=== PATIENT | male | born 1960 | race Caucasian/White ===

== ENCOUNTER 2018-07-31 18:19 | Emergency (ER) | payer OTHER ==
--- NOTE | 2018-07-31 20:20 | ER Document Report ---
ED ENT - General Chief Complaint: Nose Bleed Stated Complaint: NOSE BLEED Time Seen by Provider: 07/31/18 20:08 Notes: Patient is a 57-year-old male who presents emergency department with a chief complaint of epistaxis. He states 3 days ago he went to urgent care and they said that he could have the area cauterized. He was sent home with saline spray and Afrin for his symptoms. Today he had a gush of blood that started, and lasted about an hour. He does take aspirin at home. He has a history of hypertension. TRAVEL OUTSIDE OF THE [place] IN LAST 30 DAYS: No - Related Data Allergies/Adverse Reactions: bacitracin [From Neosporin Plus PainRelief(chantell)] Allergy (Verified 07/31/18 18:22) neomycin [From Neosporin Plus PainRelief(chantell)] Allergy (Verified 07/31/18 18:22) polymyxin B [From Neosporin Plus PainRelief(chantell)] Allergy (Verified 07/31/18 18:22) pramoxine [From Neosporin Plus PainRelief(chantell)] Allergy (Verified 07/31/18 18:22) Past Medical History - Social History Smoking Status: Never Smoker Chew tobacco use (# tins/day): No Frequency of alcohol use: None Drug Abuse: None Family History: Reviewed & Not Pertinent Patient has suicidal ideation: No Patient has homicidal ideation: No Renal/ Medical History: Denies: Hx Peritoneal Dialysis Review of Systems - Review of Systems Notes: REVIEW OF SYSTEMS: CONSTITUTIONAL : Denies recent illness. Denies recent unintentional weight loss. Denies fever, chills, or sweats. EENT: See HPI CARDIOVASCULAR: Denies chest pain. RESPIRATORY: Denies shortness of breath, cough, congestion, difficulty breathing, or wheezing. GASTROINTESTINAL: Denies nausea, vomiting, and diarrhea. Denies abdominal pain. Denies constipation. GENITOURINARY: Denies difficulty urinating, burning, blood in urine, urgency or frequency. MUSCULOSKELETAL: Denies neck and back pain. Denies joint pain or swelling. SKIN: Denies rash, itchiness, or lesions HEMATOLOGIC : Denies easy bruising or bleeding. LYMPHATIC: Denies swollen, painful, enlarged glands. NEUROLOGICAL: Denies no numbness or tingling denies weakness. Denies headache. Denies altered mental status. Denies alteration in speech. PSYCHIATRIC: Denies stress, anxiety, alteration in sleep patterns, or depression. All other systems reviewed and negative. Physical Exam - Vital signs Vitals: Temp Pulse Resp BP Pulse Ox 97.6 F 85 14 150/92 H 97 07/31/18 18:22 07/31/18 18:22 07/31/18 18:22 07/31/18 18:22 07/31/18 18:22 - Notes Notes: PHYSICAL EXAMINATION: GENERAL: Appears well, healthy, well-nourished, no acute distress. HEAD: Normocephalic, atraumatic. EYES: PERRL, conjunctiva normal, all extraocular movements intact, sclera nonicteric ENT: Moist mucous membranes. Dry blood noted to left nare. NECK: Supple, no noticeable swelling, redness, rash. Normal range of motion. LUNGS: Equal breath sounds bilaterally and clear to auscultation. No wheezes rales or rhonchi. CARDIOVASCULAR: S1-S2, regular rate, regular rhythm. Radial pulses 2+, normal. ABDOMEN: Normoactive bowel sounds. Soft, nontender, no guarding, no rebound tenderness, and no masses palpated. EXTREMITIES: Normal strength and range of motion, no pitting or edema. No cyanosis. NEUROLOGICAL: Moves all extremities upon command. Strength 5/5 in all extremities. PSYCH: Normal mood, normal affect. SKIN: Warm, dry. No rash, lesions, ulcerations noted. Normal skin turgor. Course - Re-evaluation Re-evalutation: 07/31/18 20:18 At the time my assessment the patient's bleeding had stopped. I could not visualize a definitive area of where he was bleeding. He had been holding pressure for about an hour. A CBC will be drawn to rule out anemia. If his nose bleeds again, I will cauterize the area. 07/31/18 21:50 Patient's labs are unremarkable at this time. I have discussed this case with Dr. Lu. He agrees that the patient needs to follow-up with ENT in regards to his frequent nosebleeds. Since he has not actively bleeding at this time, he will be sent home with his current regimen of Afrin and saline. - Vital Signs Vital signs: Temp Pulse Resp BP Pulse Ox 97.7 F 76 14 142/64 H 98 07/31/18 21:59 07/31/18 21:59 07/31/18 21:59 07/31/18 21:59 07/31/18 21:59 - Laboratory Result Diagrams: 07/31/18 20:42 Laboratory results interpreted by me: 07/31/18 20:42 WBC 12.5 H Discharge - Discharge Clinical Impression: Epistaxis Condition: Stable Disposition: HOME, SELF-CARE Additional Instructions: You were seen today in the emergency department for nosebleed. Your labs are normal at this time. Please continue the Afrin and saline regimen you are currently on. Please follow-up with the ear, nose, and throat doctor tomorrow morning. Please stop taking your aspirin at this time, and follow-up with your primary care doctor in 3-5 days. If you develop worsening bleeding, and are unable to stop the bleeding yourself, please return to the emergency department. Referrals: OUMAR SMITH DO [ASSOCIATE] - Follow up tomorrow
[2018-07-31 21:14] LABS: ABSOLUTE BASOPHILS # (AUTO) 0.1 10^3/uL (0.0-0.2); ABSOLUTE EOSINOPHILS # (AUTO) 0.3 10^3/uL (0.0-0.6); ABSOLUTE LYMPHOCYTES (AUTO) 3.5 10^3/uL (0.5-4.7); ABSOLUTE MONOCYTES (AUTO) 0.9 10^3/uL (0.1-1.4); ABSOLUTE NEUT (AUTO) 7.8 10^3/uL (1.7-8.2); BASOPHILS % (AUTO) 0.6 % (0-2); HEMATOCRIT 47.3 % (37.9-51.0); HEMOGLOBIN 16.5 g/dL (13.5-17.0); LYMPHOCYTES % (AUTO) 28.1 % (13-45); MEAN CORPUSCULAR HEMOGLOBIN 30.2 pg (27.0-33.4); MEAN CORPUSCULAR HGB CONC 34.9 g/dL (32.0-36.0); MEAN CORPUSCULAR VOLUME 87 fl (80-97); MONOCYTES % (AUTO) 7.3 % (3-13); RED BLOOD COUNT 5.46 10^6/uL (4.35-5.55); RED CELL DISTRIBUTION WIDTH 13.2 % (11.5-14.0); TOTAL CELLS COUNTED % (AUTO) 100 %; WHITE BLOOD COUNT 12.5 10^3/uL (4.0-10.5)
[2018-07-31 21:35] LABS: PLATELET COUNT 254 10^3/uL (150-450)
[2018-07-31 22:00] VITALS: BP 142/64
[2018-07-31 22:13] LABS: ABSOLUTE LYMPHOCYTES# (MANUAL) 3.5 10^3/uL (0.5-4.7); ABSOLUTE MONOCYTES # (MANUAL) 0.8 10^3/uL (0.1-1.4); ABSOLUTE NEUTROPHILS# (MANUAL) 8.1 10^3/uL (1.7-8.2); BASOPHILS % (MANUAL) 0 % (0-2); EOSINOPHILS % (MANUAL) 1 % (0-6); LYMPHOCYTES % (MANUAL) 28 % (13-45); MONOCYTES % (MANUAL) 6 % (3-13); SEGMENTED NEUTROPHILS % (MAN) 65 % (42-78); TOTAL CELLS COUNTED 100
[2018-07-31 22:14] LABS: PLATELET COMMENT ADEQUATE; POIKILOCYTOSIS SLIGHT; POLYCHROMASIA SLIGHT; TEAR DROP CELLS SLIGHT
== END 2018-07-31 22:00 | disposition home or self-care (01) ==
LOC: ER 18:19
DX: R04.0 Epistaxis (principal); Z79.82 Long term (current) use of aspirin; I10 Essential (primary) hypertension; Z88.3 Allergy status to other anti-infective agents
CPT/HCPCS: 36415; 85025; 99283

== ENCOUNTER 2018-08-01 04:14 | Emergency (ER) | payer OTHER ==
[2018-08-01] MEDS ORDERED: BUPIVACAINE HCL 0.5 % INJ/PF 30 ML SDV INJ ONE (04:26)
[2018-08-01] MEDS ORDERED: LIDOCAINE 2%/EPINEPHRINE INJ 20 ML VIAL INJ ONE (04:28)
--- NOTE | 2018-08-01 05:28 | ER Document Report ---
ED General - General Chief Complaint: Nose Bleed Stated Complaint: NOSE BLEED Time Seen by Provider: 08/01/18 04:22 Notes: Patient is a 57-year-old male presents with complaint of a nosebleed. Patient was seen earlier today and at that time he was not bleeding by the time he got here and therefore is discharged home with ENT follow-up. He says since going home he is now bled for about 3 hours and therefore is come back to the ER. Bleeding is coming mostly from the left nare. Some bleeding down the back of his throat. The only blood thinner he takes is aspirin. Denies any trauma to his nose. Patient said this is a fourth nosebleed in the last 2-3 days. She had a CBC performed earlier today at his previous visit which showed normal hemoglobin and normal platelets. TRAVEL OUTSIDE OF THE [place] IN LAST 30 DAYS: No - Related Data Allergies/Adverse Reactions: bacitracin [From Neosporin Plus PainRelief(chantell)] Allergy (Verified 07/31/18 18:22) neomycin [From Neosporin Plus PainRelief(chantell)] Allergy (Verified 07/31/18 18:22) polymyxin B [From Neosporin Plus PainRelief(chantell)] Allergy (Verified 07/31/18 18:22) pramoxine [From Neosporin Plus PainRelief(chantell)] Allergy (Verified 07/31/18 18:22) Past Medical History - Social History Smoking Status: Never Smoker Frequency of alcohol use: None Drug Abuse: None Family History: Reviewed & Not Pertinent Patient has suicidal ideation: No Patient has homicidal ideation: No - Past Medical History Cardiac Medical History: Reports: Hx Hypertension Endocrine Medical History: Reports: Hx Diabetes Mellitus Type 2 Renal/ Medical History: Denies: Hx Peritoneal Dialysis Past Surgical History: Reports: Hx Orthopedic Surgery - neck fusion Review of Systems - Review of Systems Notes: My Normal Review Basic REVIEW OF SYSTEMS: CONSTITUTIONAL : Denies fever, chills, or sweats. Denies recent illness. EENT: Nosebleed RESPIRATORY: Denies cough, cold, or chest congestion. Denies shortness of breath, difficulty breathing, or wheezing. MUSCULOSKELETAL: Denies neck or back pain or joint pain or swelling. SKIN: Denies rash or skin lesions. NEUROLOGICAL: Denies altered mental status or loss of consciousness. Denies headache. ALL OTHER SYSTEMS REVIEWED AND NEGATIVE. Physical Exam - Vital signs Vitals: Pulse Resp BP Pulse Ox 93 20 151/97 H 96 08/01/18 04:22 08/01/18 04:22 08/01/18 04:22 08/01/18 04:22 - Notes Notes: General Appearance: Well nourished, alert, cooperative, no acute distress, no obvious discomfort. Vitals: reviewed, See vital signs table. Head: no swelling or tenderness to the head Eyes: PERRL, EOMI, Conjuctiva clear Mouth: No decreasd moisture Nares: Constant flow of blood through left nare. No blood coming from right nare. Patient is coughing up some blood as well. Throat: No tonsillar inflammation, No airway obstruction, No lymphadenopathy. Some blood in back of throat. Neck: Supple, no neck tenderness, No neck swelling Skin: warm, dry, appropriate color, no rash Neuro: speech clear, oriented x 3, normal affect, responds appropriately to questions. Course - Re-evaluation Re-evalutation: 08/01/18 05:41 30 minutes ago I removed a cotton ball that was soaked with lidocaine with epi. When I looked inside the nares I do not see the source of bleeding in the anterior part of the nare. Suspect is further back in the left nasopharynx region. I therefore placed a packing. Bleeding seems to be much improved. Will monitor the patient feel a bit longer with the packing in place to make sure he does not have recurrent bleeding. 08/01/18 06:37 Patient has not had any further bleeding from the nose since packing is in place. Does have some headache which is understandable with the packing. I will place him on Keflex. We will place him on some pain medication. I informed that they should follow-up with the nose and throat doctor on Monday. If unable to follow-up with them by Monday then they should return to the ER for packing removal. Encouraged him to return to ER if he has any fevers or recurrent bleeding. Patient agrees with plan will be discharged home. Dictation of this chart was performed using voice recognition software; therefore, there may be some unintended grammatical errors. - Vital Signs Vital signs: Temp Pulse Resp BP Pulse Ox 97.9 F 80 18 151/83 H 97 08/01/18 06:02 08/01/18 06:02 08/01/18 06:02 08/01/18 06:02 08/01/18 06:02 Discharge - Discharge Clinical Impression: Epistaxis Condition: Good Disposition: HOME, SELF-CARE Additional Instructions: We have placed a packing in your left nose. This must be removed in 24 [address] Smith, ENT physician, to follow up or Monday for reevaluation and removal of packing. Please return to the ER on Monday for packing removal if Dr. Smith is unable to see you before the weekend. Please return to the ER immediately if you have fevers, recurrent bleeding, or feel unwell. Please be aware that [place] does have Tylenol (acetaminophen) in it. Please make sure you do not take more than 4000 mg of acetaminophen a day. Do not drive or care for children after you have taken this medication they will make you sleepy and sometimes impair judgment. Prescriptions: Cephalexin Monohydrate [Keflex 500 mg Capsule] 500 mg PO BID 5 Days #10 capsule Forms: Return to Work Referrals: OUMAR SMITH DO [ASSOCIATE] - 08/02/18
[2018-08-01 06:04] VITALS: BP 151/83
[2018-08-01] MEDS ORDERED: HYDROCODONE/ACETAMINOPHEN 5-325 MG TABLET PO ONE (06:27)
[2018-08-01] MEDS ORDERED: HYDROCODONE/ACETAMINOPHEN 5-325 MG (6 TAB/ER DISP) PO PRN (06:27)
[2018-08-01] MEDS ORDERED: CEPHALEXIN 500 MG CAPSULE PO ONE (06:27)
== END 2018-08-01 06:46 | disposition home or self-care (01) ==
LOC: ER 04:14
PROC: 2Y41X5Z Packing of Nasal Region using Packing Material (ICD-10-PCS; principal; 2018-08-01)
DX: R04.0 Epistaxis (principal); Z79.82 Long term (current) use of aspirin; I10 Essential (primary) hypertension; E11.9 Type 2 diabetes mellitus without complications
CPT/HCPCS: 99283; 30901; J3490 ×2

== ENCOUNTER 2018-08-01 17:43 | Emergency (ER) | payer OTHER ==
[2018-08-01] MEDS ORDERED: LIDOCAINE 2% VISCOUS SOLN 20 ML UDCUP PO ONE (18:08)
[2018-08-01] MEDS ORDERED: THROMBIN (BOVINE) 5000 UNIT EPITAXIS KIT TP ONE (18:08)
--- NOTE | 2018-08-01 18:11 | ER Document Report ---
ED Medical Screen (RME) - General Chief Complaint: Nose Bleed Stated Complaint: NOSE BLEED Time Seen by Provider: 08/01/18 18:07 Mode of Arrival: Ambulatory Information source: Patient Notes: 57-year-old male returns fo the third time in 2 days with a nosebleed. Not on any blood thinning medications. Denies trauma. Patient had nasal packing placed this morning but now has bleeding around the packing. I have greeted and performed a rapid initial assessment of this patient. A comprehensive ED assessment and evaluation of the patient, analysis of test results and completion of medical decision making process we will be contacted by additional ED providers. PHYSICAL EXAMINATION: Vital signs reviewed-hypertensive GENERAL: Well-appearing, well-nourished and in no acute distress. LUNGS: No respiratory distress Musculoskeletal: Normal range of motion NEUROLOGICAL: Normal speech, normal gait. PSYCH: Normal mood, normal affect. SKIN: Warm, Dry, normal turgor, no rashes or lesions noted. TRAVEL OUTSIDE OF THE [place] IN LAST 30 DAYS: No - HPI Onset: Other Onset/Duration: Persistent Quality of pain: No pain Severity: Moderate - Related Data Allergies/Adverse Reactions: bacitracin [From Neosporin Plus PainRelief(chantell)] Allergy (Verified 08/01/18 17:45) neomycin [From Neosporin Plus PainRelief(chantell)] Allergy (Verified 08/01/18 17:45) polymyxin B [From Neosporin Plus PainRelief(chantell)] Allergy (Verified 08/01/18 17:45) pramoxine [From Neosporin Plus PainRelief(chantell)] Allergy (Verified 08/01/18 17:45) Past Medical History - Past Medical History Cardiac Medical History: Reports: Hx Hypertension Endocrine Medical History: Reports: Hx Diabetes Mellitus Type 2 Renal/ Medical History: Denies: Hx Peritoneal Dialysis Past Surgical History: Reports: Hx Orthopedic Surgery - neck fusion Physical Exam - Vital signs Vitals: Temp Pulse Resp BP Pulse Ox 97.8 F 97 18 151/95 H 96 08/01/18 17:49 08/01/18 17:49 08/01/18 17:49 08/01/18 17:49 08/01/18 17:49 Course - Vital Signs Vital signs: Temp Pulse Resp BP Pulse Ox 97.8 F 97 18 151/95 H 96 08/01/18 17:49 08/01/18 17:49 08/01/18 17:49 08/01/18 17:49 08/01/18 17:49
[2018-08-01] MEDS ORDERED: OXYMETAZOLINE HCL 0.05% NASAL SPRAY 15 ML BOTTLE NASL ONE (18:17)
[2018-08-01] MEDS ORDERED: TRANEXAMIC ACID INJ/PF 1,000 MG/10 ML SDV IV ONE (18:50)
--- NOTE | 2018-08-01 19:04 | ER Document Report ---
ED ENT - General Chief Complaint: Nose Bleed Stated Complaint: NOSE BLEED Time Seen by Provider: 08/01/18 18:07 Mode of Arrival: Ambulatory Information source: Patient TRAVEL OUTSIDE OF THE [place] IN LAST 30 DAYS: No - HPI Patient complains to provider of: Nose problem Onset: Other - 2 days Onset/Duration: Intermittent, Persistent Quality of pain: Achy Severity: Moderate Location of pain: Nose Associated symptoms: Nose bleed Similar symptoms previously: Yes Recently seen / treated by doctor: Yes Notes: Patient is a 57-year-old male presenting to the emergency room for the third time in the last 2 days complaining of nosebleed, he reports that it is very dry in his house and he has had an upper respiratory illness over the past few days which is likely what led to his nosebleed, he was seen in the emergency room here twice previously and on the second occasion had a Rhino Rocket placed in the left nare, however he developed bleeding around the packing earlier today prompting him to come back to the emergency department, he is coughing up a small amount of blood-tinged sputum as well, denies any fevers, takes baby as pirin on a daily basis but no other blood thinners, denies any nasal trauma - Related Data Allergies/Adverse Reactions: bacitracin [From Neosporin Plus PainRelief(chantell)] Allergy (Verified 08/01/18 17:45) neomycin [From Neosporin Plus PainRelief(chantell)] Allergy (Verified 08/01/18 17:45) polymyxin B [From Neosporin Plus PainRelief(chantell)] Allergy (Verified 08/01/18 17:45) pramoxine [From Neosporin Plus PainRelief(chantell)] Allergy (Verified 08/01/18 17:45) Past Medical History - General Information source: Patient - Social History Smoking Status: Unknown if Ever Smoked Family History: Reviewed & Not Pertinent - Past Medical History Cardiac Medical History: Reports: Hx Hypertension Endocrine Medical History: Reports: Hx Diabetes Mellitus Type 2 Renal/ Medical History: Denies: Hx Peritoneal Dialysis Past Surgical History: Reports: Hx Orthopedic Surgery - neck fusion Review of Systems - Review of Systems Constitutional: No symptoms reported EENT: See HPI Cardiovascular: No symptoms reported Respiratory: No symptoms reported Gastrointestinal: No symptoms reported Genitourinary: No symptoms reported Male Genitourinary: No symptoms reported Musculoskeletal: No symptoms reported Skin: No symptoms reported Hematologic/Lymphatic: No symptoms reported Neurological/Psychological: No symptoms reported -: Yes All other systems reviewed and negative Physical Exam - Vital signs Vitals: Temp Pulse Resp BP Pulse Ox 97.8 F 97 18 151/95 H 96 08/01/18 17:49 08/01/18 17:49 08/01/18 17:49 08/01/18 17:49 08/01/18 17:49 Interpretation: Normal - General General appearance: Appears well, Alert - HEENT Head: Normocephalic, Atraumatic Eyes: Normal Conjunctiva: Normal Extraocular movements intact: Yes Eyelashes: Normal Pupils: PERRL Nasal: Bloody discharge - Left side Pharynx: Normal Neck: Normal - Respiratory Respiratory status: No respiratory distress Chest status: Nontender Breath sounds: Normal Chest palpation: Normal - Cardiovascular Rhythm: Regular Heart sounds: Normal auscultation Murmur: No - Abdominal Inspection: Normal Distension: No distension Bowel sounds: Normal Tenderness: Nontender Organomegaly: No organomegaly - Back Back: Normal, Nontender - Extremities General upper extremity: Normal inspection, Nontender, Normal color, Normal ROM, Normal temperature General lower extremity: Normal inspection, Nontender, Normal color, Normal ROM, Normal temperature, Normal weight bearing. No: Milo's sign - Neurological Neuro grossly intact: Yes Cognition: Normal Orientation: AAOx4 Cyclone Coma Scale Eye Opening: Spontaneous Cyclone Coma Scale Verbal: Oriented Denilson Coma Scale Motor: Obeys Commands Denilson Coma Scale Total: 15 Speech: Normal Motor strength normal: LUE, RUE, LLE, RLE Sensory: Normal - Psychological Associated symptoms: Normal affect, Normal mood - Skin Skin Temperature: Warm Skin Moisture: Dry Skin Color: Normal Course - Re-evaluation Re-evalutation: 08/01/18 23:08 On initial evaluation I removed the Merocel packing that was placed in the triage area, I did attempt to use an atomizer to administer thrombin, however this made patient gag repeatedly causing him to have worsening bleeding from his left nare, I then took a Merocel sponge and soaked it in TXA, and placed in the left nare, I observed him for nearly an hour at that time he continued to have a small amount of oozing from the left nare, I then removed that Marocel dressing, placed another one in the left nare and soaks at that in TXA as well, observe patient for another 40 minutes, he did not appear to have any worsening bleeding at this time and there was no blood oozing from the sponge, therefore patient was discharged with instructions to follow-up with ENT on Monday as scheduled, return if symptoms worsen, patient and acknowledge understanding and agreement with this plan - Vital Signs Vital signs: Temp Pulse Resp BP Pulse Ox 97.8 F 98 20 172/98 H 99 08/01/18 17:49 08/01/18 20:26 08/01/18 20:26 08/01/18 20:26 08/01/18 20:26 Discharge - Discharge Clinical Impression: Epistaxis Condition: Stable Disposition: HOME, SELF-CARE Instructions: Nosebleed Instructions ([facility]) Additional Instructions: Follow-up with ENT as scheduled. Return to the emergency room immediately if symptoms worsen or any additional concerns.
[2018-08-01 20:27] VITALS: BP 172/98
== END 2018-08-01 20:40 | disposition home or self-care (01) ==
LOC: ER 17:43
PROC: 2Y41X5Z Packing of Nasal Region using Packing Material (ICD-10-PCS; principal; 2018-08-01)
DX: R04.0 Epistaxis (principal); I10 Essential (primary) hypertension; E11.9 Type 2 diabetes mellitus without complications; Z79.82 Long term (current) use of aspirin
CPT/HCPCS: 30901; 93005; 99283; 99285; 36415; 85025; 93010; J3490 ×6

== ENCOUNTER 2018-08-01 21:28 | Emergency (ER) | payer OTHER ==
[2018-08-01 23:13] LABS: ABSOLUTE BASOPHILS # (AUTO) 0.1 10^3/uL (0.0-0.2); ABSOLUTE LYMPHOCYTES (AUTO) 1.7 10^3/uL (0.5-4.7); ABSOLUTE MONOCYTES (AUTO) 1.1 10^3/uL (0.1-1.4); ABSOLUTE NEUT (AUTO) 14.3 10^3/uL (1.7-8.2); BASOPHILS % (AUTO) 0.3 % (0-2); EOSINOPHILS % (AUTO) 0.1 % (0-6); HEMATOCRIT 45.4 % (37.9-51.0); LYMPHOCYTES % (AUTO) 10.1 % (13-45); MEAN CORPUSCULAR HEMOGLOBIN 30.5 pg (27.0-33.4); MEAN CORPUSCULAR HGB CONC 35.3 g/dL (32.0-36.0); MEAN CORPUSCULAR VOLUME 86 fl (80-97); MONOCYTES % (AUTO) 6.3 % (3-13); PLATELET COUNT 255 10^3/uL (150-450); RED BLOOD COUNT 5.26 10^6/uL (4.35-5.55); SEGMENTED NEUTROPHILS % (AUTO) 83.2 % (42-78); TOTAL CELLS COUNTED % (AUTO) 100 %; WHITE BLOOD COUNT 17.2 10^3/uL (4.0-10.5)
--- NOTE | 2018-08-01 23:15 | ER Document Report ---
ED General - General Chief Complaint: Fainting Stated Complaint: PASSED OUT Time Seen by Provider: 08/01/18 22:34 Notes: Patient is a 57-year-old male who presents to the emergency department with a chief complaint of passing out. He was seen times already in the emergency department for complaints of epistaxis. The first visit he was seen and there was no active bleeding noted, therefore he was sent home. During the second visit he had nasal packing placed and the bleeding was controlled and he was sent home. On his third visit packing was placed again, with TXA. His was driving him home on his third visit and he had slumped over in the car. His witnessed the event and denies him hitting his head. He was referred out to ENT here in [place], but the next appointment is not until Monday. He does take aspirin. TRAVEL OUTSIDE OF THE [place] IN LAST 30 DAYS: No - Related Data Allergies/Adverse Reactions: bacitracin [From Neosporin Plus PainRelief(chantell)] Allergy (Verified 08/01/18 17:45) neomycin [From Neosporin Plus PainRelief(chantell)] Allergy (Verified 08/01/18 17:45) polymyxin B [From Neosporin Plus PainRelief(chantell)] Allergy (Verified 08/01/18 17:45) pramoxine [From Neosporin Plus PainRelief(chantell)] Allergy (Verified 08/01/18 17:45) Past Medical History - Social History Smoking Status: Never Smoker Chew tobacco use (# tins/day): No Frequency of alcohol use: None Drug Abuse: None Family History: Reviewed & Not Pertinent Patient has suicidal ideation: No Patient has homicidal ideation: No - Past Medical History Cardiac Medical History: Reports: Hx Hypercholesterolemia, Hx Hypertension Endocrine Medical History: Reports: Hx Diabetes Mellitus Type 2 Renal/ Medical History: Denies: Hx Peritoneal Dialysis Past Surgical History: Reports: Hx Orthopedic Surgery - neck fusion Review of Systems - Review of Systems Notes: REVIEW OF SYSTEMS: CONSTITUTIONAL : Denies recent illness. Denies recent unintentional weight loss. Denies fever, chills, or sweats. EENT: See HPI CARDIOVASCULAR: Denies chest pain. RESPIRATORY: Denies shortness of breath, cough, congestion, difficulty breathing, or wheezing. GASTROINTESTINAL: Denies nausea, vomiting, and diarrhea. Denies abdominal pain. Denies constipation. GENITOURINARY: Denies difficulty urinating, burning, blood in urine, urgency or frequency. MUSCULOSKELETAL: Denies neck and back pain. Denies joint pain or swelling. SKIN: Denies rash, itchiness, or lesions HEMATOLOGIC : Denies easy bruising or bleeding. LYMPHATIC: Denies swollen, painful, enlarged glands. NEUROLOGICAL: See HPI PSYCHIATRIC: Denies stress, anxiety, alteration in sleep patterns, or depression. All other systems reviewed and negative. Physical Exam - Vital signs Vitals: Resp Pulse Ox 16 97 08/01/18 22:29 08/01/18 22:29 - Notes Notes: PHYSICAL EXAMINATION: GENERAL: Appears well, healthy, well-nourished, no acute distress. HEAD: Normocephalic, atraumatic. EYES: PERRL, conjunctiva normal, all extraocular movements intact, sclera nonicteric ENT: Moist mucous membranes. Bloody drainage noted to patient's oropharynx and left nare. Clots noted when patient coughs. NECK: Supple, no noticeable swelling, redness, rash. Normal range of motion. LUNGS: Equal breath sounds bilaterally and clear to auscultation. No wheezes rales or rhonchi. CARDIOVASCULAR: S1-S2, tachycardic, regular rhythm. Radial pulses 2+, normal. ABDOMEN: Normoactive bowel sounds. Soft, nontender, no guarding, no rebound tenderness, and no masses palpated. EXTREMITIES: Normal strength and range of motion, no pitting or edema. No cyanosis. NEUROLOGICAL: Moves all extremities upon command. Strength 5/5 in all extremities. PSYCH: Normal mood, normal affect. SKIN: Warm, dry. No rash, lesions, ulcerations noted. Normal skin turgor. Course - Re-evaluation Re-evalutation: 08/01/18 23:15 Patient did have bleeding around his nasal packing. His nasal packing was removed to assess left nare. There was mild amount of bleeding near the tip of his nares and silver nitrate was used in that area. I have spoke with Dr. Hanks and Dr. Zimmer in regards to this patient's case. They both saw him earlier and informed me on the interventions that were done earlier today. 08/02/18 00:48 Patient's hemoglobin is 16 and last night his hemoglobin was 16.5. Although the patient's hemoglobin has not dropped, I would like him to see ENT. Since there is no ENT web content developer, I will call [facility] for consult about this case. The patient and his are aware that he needs to go to [facility] for ENT specialty. 08/02/18 00:54 I have called and spoke with [facility] transfer center. Awaiting callback from their ENT web content developer. 08/02/18 01:09 I have spoke with Dr. Kapadia, the ENT physician on-call for [facility]. He recommends that we place a Rhino Rocket with Xylocaine and Afrin in his nose. He also recommends that the patient get started on antibiotics. 08/02/18 01:37 I have spoke with Tony, from the transport center. He states that Dr. Kapadia will see the patient in the emergency department. He will be a ER to ER tra nsfer. 08/02/18 02:10 Dr. Hanks at bedside to Place Rhino Rocket with lidocaine and Afrin spray as per Dr. Kapadia' request. Patient tolerated procedure well. 08/02/18 03:01 Transport will be here at 430. 08/02/18 04:30 I have evaluated the patient and he is stable for transport to [facility]. He will be transported via ALS ground. - Vital Signs Vital signs: Temp Pulse Resp BP Pulse Ox 102 H 17 148/80 H 96 08/01/18 22:36 08/02/18 02:01 08/02/18 02:00 08/02/18 02:01 - Laboratory Result Diagrams: 08/01/18 22:35 Laboratory results interpreted by me: 08/01/18 22:35 WBC 17.2 H Seg Neutrophils % 83.2 H Lymphocytes % 10.1 L Absolute Neutrophils 14.3 H Discharge - Discharge Clinical Impression: Epistaxis Syncope Qualifiers: Syncope type: unspecified Qualified Code(s): R55 - Syncope and collapse Condition: Fair Disposition: [facility] Referrals: DONNIE GUERRA PA-C [Primary Care Provider] - Follow up as needed
[2018-08-02] MEDS ORDERED: CEPHALEXIN 500 MG CAPSULE PO ONE (01:17)
[2018-08-02] MEDS ORDERED: LIDOCAINE 2% JELLY 30 ML TUBE TOP ONE (01:18)
[2018-08-02] MEDS ORDERED: OXYMETAZOLINE HCL 0.05% NASAL SPRAY 15 ML BOTTLE NASL ONE (01:19)
[2018-08-02] MEDS ORDERED: LIDOCAINE 2% INJ-PF (20 MG/ML) 10 ML AMPUL ONE (02:05)
[2018-08-02] MEDS ORDERED: LIDOCAINE 2% JELLY 30 ML TUBE ONE (02:07)
[2018-08-02 02:28] VITALS: BP 148/80
--- NOTE | 2018-08-02 13:36 | EKG REPORT ---
SEVERITY:- BORDERLINE ECG - SINUS RHYTHM CONSIDER RIGHT VENTRICULAR HYPERTROPHY : Confirmed by: Kavya Simms MD 02-Aug-2018 13:36:15
== END 2018-08-02 04:31 | disposition short-term general hospital (02) ==
LOC: ER 21:28
PROC: 093K7ZZ Control Bleeding in Nasal Mucosa and Soft Tissue, Via Natural or Artificial Opening (ICD-10-PCS; principal; 2018-08-01)
DX: R55 Syncope and collapse (principal); R04.0 Epistaxis; Z79.82 Long term (current) use of aspirin; I10 Essential (primary) hypertension; E11.9 Type 2 diabetes mellitus without complications
CPT/HCPCS: 93005; 99285; 36415; 85025; 93010; 30901; J3490

== ENCOUNTER → 2020-08-27 | Outpatient (CLI) | payer OTHER ==
--- NOTE | 2020-08-27 12:17 | RADIOLOGY REPORT (SQ) ---
EXAM DESCRIPTION: CHEST 2 VIEWS IMAGES COMPLETED DATE/TIME: 08/27/2020 11:55 am REASON FOR STUDY: (R07.89)OTHER CHEST PAIN COMPARISON: None. EXAM PARAMETERS: NUMBER OF VIEWS: two views TECHNIQUE: Digital Frontal and Lateral radiographic views of the chest acquired. RADIATION DOSE: NA LIMITATIONS: none FINDINGS: LUNGS AND PLEURA: No opacities, masses or pneumothorax. No pleural effusion. MEDIASTINUM AND HILAR STRUCTURES: No masses or contour abnormalities. HEART AND VASCULAR STRUCTURES: Heart normal size. No evidence for failure. BONES: No acute findings. HARDWARE: Cervicothoracic junction ACDF hardware. OTHER: No other significant finding. IMPRESSION: No evidence of acute cardiopulmonary abnormality. TECHNICAL DOCUMENTATION: JOB ID: [id number] 2010 [employer]- All Rights Reserved Reading location - IP/workstation name: [email or web address]
== END ==
LOC: RAD 11:33
PROVIDERS: ATTEND Physician Assistant
DX: R07.89 Other chest pain (principal)
CPT/HCPCS: 71046